=== PATIENT | female | born 1995 | race Hispanic/Latino ===

== ENCOUNTER → 2020-05-13 | Outpatient (REF) | payer OTHER, MEDICAID ==
[2020-05-13 13:52] LABS: BASO # 0.1 10^3/uL (0.0-0.2); BASO % 0.6 % (0.0-1.0); EOS # 0.9 10^3/uL (0.0-0.5); EOS % 10.4 % (0.0-3.0); HEMATOCRIT 38.8 % (36.0-47.0); HEMOGLOBIN 12.5 g/dl (12.0-15.5); LYMPH # 2.8 10^3/uL (1.5-5.0); LYMPH % 32.5 % (24.0-44.0); MEAN CORPUSCULAR HGB CONC 32.2 g/dl (32.0-36.5); MEAN CORPUSCULAR VOLUME 86.8 fl (80.0-96.0); MONO # 0.7 10^3/uL (0.0-0.8); MONO % 7.8 % (0.0-5.0); NEUTROPHILS # 4.2 10^3/uL (1.5-8.5); NEUTROPHILS % 48.4 % (36.0-66.0); PLATELET COUNT, AUTOMATED 361 10^3/uL (150-450); RED BLOOD COUNT 4.47 10^6/uL (4.00-5.40); WHITE BLOOD COUNT 8.7 10^3/uL (4.0-10.0)
[2020-05-13 13:55] LABS: APPEARANCE, URINE CLEAR (CLEAR); BACTERIA, URINE AUTO NEGATIVE (NEGATIVE); BILIRUBIN, URINE AUTO NEGATIVE (NEGATIVE); BLOOD, URINE BLOOD NEGATIVE (NEGATIVE); COLOR, URINE YELLOW (YELLOW); GLUCOSE, URINE (UA) AUTO NEGATIVE (NEGATIVE); KETONE, URINE AUTO NEGATIVE (NEGATIVE); LEUKOCYTE ESTERASE, URINE AUTO NEGATIVE (NEGATIVE); MUCUS, URINE SMALL (NEGATIVE); NITRITE, URINE AUTO NEGATIVE (NEGATIVE); PROTEIN, URINE AUTO NEGATIVE (NEGATIVE); RBC, URINE AUTO 0 /HPF (0-3); SPECIFIC GRAVITY URINE AUTO 1.019 (1.002-1.035); SQUAMOUS EPITHELIAL CELL UR AU 4 /HPF (0-6); UROBILINOGEN, URINE AUTO 0.2 mg/dL (0.0-2.0); WBC, URINE AUTO 0 /HPF (0-3)
[2020-05-13 14:11] LABS: HEMOGLOBIN A1c 5.4 %
[2020-05-13 14:26] LABS: ALBUMIN 3.5 GM/DL (3.2-5.2); ALT/SGPT 24 U/L (12-78); BILIRUBIN,TOTAL 0.4 MG/DL (0.2-1.0); BLOOD UREA NITROGEN 12 MG/DL (7-18); CALCIUM LEVEL 8.9 MG/DL (8.5-10.1); CARBON DIOXIDE LEVEL 26 MEQ/L (21-32); CHLORIDE LEVEL 108 MEQ/L (98-107); CHOLESTEROL LEVEL 187 MG/DL (<200); CREATININE FOR GFR 0.79 MG/DL (0.55-1.30); FREE T4 1.14 NG/DL (0.76-1.46); GLOMERULAR FILTRATION RATE > 60.0 (>60); GLUCOSE, FASTING 98 MG/DL (70-100); HDL CHOLESTEROL 76 MG/DL (>40); LDL CHOLESTEROL 93 MG/DL (<100); NON-HDL-C 111 MG/DL; POTASSIUM SERUM 4.4 MEQ/L (3.5-5.1); SODIUM LEVEL 138 MEQ/L (136-145); TOTAL PROTEIN 7.1 GM/DL (6.4-8.2); TRIGLYCERIDES LEVEL 89 MG/DL (<150)
[2020-05-13 14:27] LABS: TOTAL 25(OH) VITAMIN D 32.6 NG/ML (30.0-100.0)
== END ==
LOC: M LAB REF 12:59
PROVIDERS: ATTEND Nurse Practitioner Family
DX: Z28.3 Underimmunization status (principal); Z30.41 Encounter for surveillance of contraceptive pills; Z13.9 Encounter for screening, unspecified; J30.9 Allergic rhinitis, unspecified; J45.40 Moderate persistent asthma, uncomplicated; R51.9 Headache, unspecified; G35 Multiple sclerosis; F41.8 Other specified anxiety disorders

== ENCOUNTER → 2020-06-13 | Outpatient (REF) | payer OTHER | LOC: M LAB REF 17:09 | PROVIDERS: ATTEND Nurse Practitioner Family | DX: R10.829 Rebound abdominal tenderness, unspecified site (principal) ==

== ENCOUNTER → 2020-12-24 | Outpatient (CLI) | payer MEDICAID, MEDICARE ==
--- NOTE | 2020-12-24 14:02 | REP ---
INDICATION: RUQ ABD PAIN. COMPARISON: None TECHNIQUE: After the intravenous administration of 6.6 mCi of technetium 99 M Choletec hepatobiliary imaging was performed with gallbladder ejection fraction calculation. FINDINGS: The gallbladder was promptly visualized between 10 and 15 minutes. There is symmetric distribution of the radiotracer throughout the hepatocytes. The radiotracer is seen distributed throughout the small bowel in a normal fashion. The gallbladder ejection fraction calculation is 20%. This is below the lower limit of normal being 35%. IMPRESSION: Abnormal gallbladder ejection fraction as described above. This could be secondary to biliary dyskinesia, dyskinesia of the sphincter of Oddi, chronic acalculous cholecystitis, or common bile duct syndrome. <Electronically signed by Petros Tapia > 12/24/20 [id number]
== END ==
LOC: M RAD 11:19
PROVIDERS: ATTEND Preventive Medicine Undersea and Hyperbaric Medicine
DX: R10.821 Right upper quadrant rebound abdominal tenderness (principal)
CPT/HCPCS: 78227; A9537

== ENCOUNTER → 2020-12-27 | Outpatient (REF) | payer MEDICARE, OTHER | LOC: M SFHCWAGY 17:17 | PROVIDERS: ATTEND Advanced Practice Midwife | DX: Z12.4 Encounter for screening for malignant neoplasm of cervix (principal); Z11.3 Encounter for screening for infections with a predominantly sexual mode of transmission ==

== ENCOUNTER → 2021-04-01 | Outpatient (CLI) | payer OTHER ==
--- NOTE | 2021-04-02 12:40 | REPVR ---
PROCEDURE INFORMATION: Exam: CT Maxillofacial Without Contrast, Sinus Exam date and time: 04/01/2021 2:25 PM Age: 25 years old Clinical indication: Face pain; Prior surgery; Surgery date: 6+ months; Surgery type: Nasal polyps removed 2019, [facility], [place], unknown facility. ; Additional info: Chronic pansinusitis TECHNIQUE: Imaging protocol: CT Maxillofacial without contrast. Focus on the sinuses. Radiation optimization: All CT scans at this facility use at least one of these dose optimization techniques: automated exposure control; mA and/or kV adjustment per patient size (includes targeted exams where dose is matched to clinical indication); or iterative reconstruction. COMPARISON: No relevant prior studies available. FINDINGS: Frontal sinuses: Marked mucosal thickening is present in the frontal sinus. Ethmoid air cells: Marked mucosal thickening is present in the ethmoid air cells. Sphenoid sinuses: Moderate mucosal thickening is present in the sphenoid sinus. Maxillary sinuses: There is moderate mucosal thickening in the maxillary sinuses, more pronounced on the left. Air-fluid levels are also seen in the maxillary sinuses, again more pronounced on the left. Nasal cavity/Septum: Unremarkable. Orbital cavity: The orbital structures are unremarkable. Bones/joints: Unremarkable. Soft tissues: Unremarkable. IMPRESSION: Pansinusitis Electronically signed by: Armond Mora On 04/02/2021 12:40:10 PM
== END ==
LOC: M PLAIMG 13:54
PROVIDERS: ATTEND Otolaryngology
DX: J32.4 Chronic pansinusitis (principal)

== ENCOUNTER → 2022-06-01 | Outpatient (REF) | payer OTHER | LOC: M LAB REF 17:02 | PROVIDERS: ATTEND Physician Assistant | DX: J02.9 Acute pharyngitis, unspecified (principal) ==